=== PATIENT | female | born 1950 | race Caucasian/White ===

== ENCOUNTER → 2017-10-27 14:39 | Outpatient (CLI) | payer MEDICARE, SELFPAY ==
--- NOTE | 2017-10-27 14:52 | MM_ITS ---
MM Dig screening mamm BI w/CAD CAD Screening COMPARISON: Digital mammograms 02/18/2016 and 07/04/2014 INDICATION: There is a history of breast cancer patient's daughter. There has been a previous biopsy right breast. TECHNIQUE: Standard CC and MLO images were obtained. R2 CAD reviewed. FINDINGS: The breasts are composed primarily of fat with minimal scattered fibroglandular densities in each breast. There are multiple benign-appearing calcifications in each breast. There is a stable benign-appearing nodular density just deep to the nipple right breast. Is a biopsy clip seen deep within the right breast. There is another stable nodular density deep within the right breast near the axillary tail. There is no suspicious lesion and no suspicious microcalcifications. IMPRESSION: Fatty type breast parenchyma with no suspicious lesion seen BI-RADS Category: 2 Benign Finding(s) RECOMMENDED FOLLOW-UP: 1YR - 1 YEAR FOLLOW-UP (A letter has been sent to the patient regarding results of the study.)
--- NOTE | 2017-10-27 14:52 | XR_ITS ---
XR DEXA axial skeleton HISTORY: ITS.REASON: POST MENOPAUSAL ORDERING PHYSICIAN: Moira Loyd PATIENT AGE: 67 years COMPARISON: None FINDINGS: The BMD measured at the left femoral neck is 0.759 g/cm squared with a T score of -2.0. This is considered Osteopenic according to the World Health Organization criteria. Fracture risk is Moderate. Treatment is advised. The L1-L4 density has a T score of -1.7 IMPRESSION: Osteopenia with moderate fracture risk. Recommend treatment and follow-up exam in October 2019
== END ==
PROVIDERS: Family Provider Nurse Practitioner Family; PCP Family Medicine; Visit Provider Nurse Practitioner Family
DX: Z78.0 Asymptomatic menopausal state (principal); Z12.31 Encounter for screening mammogram for malignant neoplasm of breast
CPT/HCPCS: 77067; 77080

== ENCOUNTER → 2017-12-31 13:25 | Outpatient (CLI) | payer MEDICARE, SELFPAY ==
--- NOTE | 2017-12-31 13:31 | XR_ITS ---
XR hand LT min 3V HISTORY: Posttraumatic pain ITS.REASON: LEFT HAND INJURY ORDERING PHYSICIAN: JAZLYN Levy PATIENT AGE: 67 years COMPARISON: None FINDINGS: Soft tissue swelling is present at the metacarpal phalangeal junction. Nondisplaced fracture involves the proximal aspect of the proximal phalanx of the fourth finger only well seen on the AP view.. There is an old distal radial and old distal ulnar fracture. IMPRESSION: Nondisplaced fracture proximal aspect proximal phalanx fourth digit
== END ==
PROVIDERS: PCP Nurse Practitioner Family; Visit Provider Physician Assistant
DX: S69.92XA Unspecified injury of left wrist, hand and finger(s), initial encounter (principal)
CPT/HCPCS: 73130

== ENCOUNTER → 2018-01-19 10:13 | Outpatient (CLI) | payer MEDICARE, SELFPAY ==
--- NOTE | 2018-01-19 10:18 | XR_ITS ---
XR finger LT min 2V CLINICAL INDICATION: Follow-up fracture ITS.REASON: FU FX RING FINGER ORDERING PHYSICIAN: JAZLYN Levy PATIENT AGE: 67 years Comparison: 8 01/30/2013 FINDINGS: Persistent oblique nondisplaced fracture involves the proximal and anterior aspect of the proximal phalanx of the fourth digit not significant changed. No callus formation. IMPRESSION: No change nondisplaced fracture proximal phalanx fourth digit
== END ==
PROVIDERS: PCP Family Medicine; Visit Provider Physician Assistant
DX: S62.645D Nondisplaced fracture of proximal phalanx of left ring finger, subsequent encounter for fracture with routine healing (principal)
CPT/HCPCS: 73140

== ENCOUNTER → 2018-02-23 14:09 | Outpatient (CLI) | payer MEDICARE, SELFPAY ==
--- NOTE | 2018-02-23 14:16 | XR_ITS ---
XR finger LT min 2V CLINICAL INDICATION: Follow-up fracture ITS.REASON: FU FX ORDERING PHYSICIAN: Moira Loyd PATIENT AGE: 67 years Comparison: 01/19/2018 FINDINGS: Nondisplaced fracture noted at the base of the proximal phalanx of the finger with both a longitudinal and transverse component fracture line is slightly less apparent compared to the previous exam. IMPRESSION: Healing nondisplaced fracture base of proximal phalanx of fourth digit
== END ==
PROVIDERS: PCP Nurse Practitioner Family; Visit Provider Nurse Practitioner Family
DX: S62.645D Nondisplaced fracture of proximal phalanx of left ring finger, subsequent encounter for fracture with routine healing (principal)
CPT/HCPCS: 73140

== ENCOUNTER → 2018-07-26 13:29 | Outpatient (CLI) | payer MEDICARE, SELFPAY ==
--- NOTE | 2018-07-26 13:41 | XR_ITS ---
EXAM: XR lumbar spine min 4V HISTORY: ITS.REASON: LOW BACK PAIN ORDERING PHYSICIAN: Moira Loyd PATIENT AGE: 68 years COMPARISON: None FINDINGS: There is normal alignment. No fracture or dislocation is evident. Ankylosis is present in the lower thoracic spine. Small endplate osteophytes are present from L3 to S1. No lytic or blastic change. Gastric lap band is noted IMPRESSION: Mild degenerative change, no acute finding
== END ==
PROVIDERS: PCP Nurse Practitioner Family; Visit Provider Nurse Practitioner Family
DX: M54.5 Low back pain (principal)
CPT/HCPCS: 72110

== ENCOUNTER → 2018-11-26 15:50 | Outpatient (CLI) | payer MEDICARE, SELFPAY ==
--- NOTE | 2018-11-26 15:53 | MM_ITS ---
MM Dig screening mamm BI w/CAD ORDERING PHYSICIAN : Moira Loyd APRN PATIENT AGE: 68 years GENDER: Female COMPARISON: January 2016, October 2017, June 2014, INDICATION: Routine screening mammogram. No hormones no new complaints Previous stereotactic biopsy right breast was benign Family history:.With breast cancer age 35 TECHNIQUE: Standard CC and MLO images were obtained. R2 CAD reviewed. FINDINGS: Low-density breast with generalized fatty replacement. No suspicious nor dominant mass . No significant new densities of significant concern. A few low-density Scattered small stable density areas compatible intramammary nodes bilaterally. No new areas of significant concern. RIGHT BREAST: No new findings significant concern. Small intramammary node, lateral right breast 7.5 mm again noted similar to previous study. Previous percutaneous biopsy medial right breast. Metallic marker from such noted. Some stable linear likely developing secretory calcifications at medial right breast again noted only slightly more evident.. Warrant ongoing follow-up LEFT BREAST: Stable 1 cm very dense calcified area in the retroareolar region again noted. Other scattered dense benign calcifications again noted. . ...... IMPRESSION: ...... 1.... No significant new findings. 2.... Bilateral follow-up in one year recommended and should be encouraged BI-RADS Category: 2 Benign Finding(s) RECOMMENDED FOLLOW-UP: 1YR 1 YEAR FOLLOW-UP (A letter has been sent to the patient regarding results of the study.)
== END ==
PROVIDERS: PCP Nurse Practitioner Family; Visit Provider Nurse Practitioner Family
DX: Z12.31 Encounter for screening mammogram for malignant neoplasm of breast (principal)
CPT/HCPCS: 77067

== ENCOUNTER → 2019-05-30 10:52 | Outpatient (CLI) | payer MEDICARE, SELFPAY ==
--- NOTE | 2019-05-30 11:05 | ECG_ITS ---
APPROVED REPORT Exam: Resting ECG HR:60 bpm ECG Measurements Heart Rate 60 AXES KS 148 P 42 QRSd 98 QRS -6 QT 432 T 99 QTc 432 <Conclusion> Sinus rhythm with occasional premature ventricular complexes NDST-T Changes Abnormal ECG Electronically signed by : Prashanth Jang, 05/30/2019 12:54:53
--- NOTE | 2019-05-30 11:07 | XR_ITS ---
PROCEDURE: XR CHEST 2V CLINICAL HISTORY: CHEST PAIN COMPARISON: CXR CHEST(2 VIEWS-NOT PORTABLE) from 08/22/2013 CXR CHEST(2 VIEWS-NOT PORTABLE) from 06/18/2016 CXR CHEST(2 VIEWS-NOT PORTABLE) from 08/12/2016 CXR CHEST(2 VIEWS-NOT PORTABLE) from 04/22/2017 FINDINGS: Borderline cardiomegaly without failure. Coronary artery stents and or calcification noted. The lungs are clear without infiltrates, suspicious nodules, or pleural effusions. Thoracic scoliosis convex right with lumbar scoliosis convex left with degenerative changes of the thoracic spine. IMPRESSION: Cardiomegaly with coronary artery disease. No change with no acute finding Dictated by: Bi Villalobos MD 05/30/2019 12:04 Electronically signed by Bi Villalobos MD in [place] 05/30/2019 12:04
== END ==
PROVIDERS: PCP Family Medicine; Visit Provider Nurse Practitioner Family
DX: R07.9 Chest pain, unspecified (principal)
CPT/HCPCS: 71046; 93005

== ENCOUNTER → 2019-06-02 07:47 | Outpatient (CLI) | payer MEDICARE, SELFPAY ==
--- NOTE | 2019-06-02 08:00 | CT_ITS ---
PROCEDURE: CT ABDOMEN WO CON CLINICAL HISTORY: EPIGASTRIC PAIN, CHEST PAIN COMPARISON: XR CHEST 2V from 05/30/2019 TECHNIQUE: Axial images obtained with sagittal and coronal reformats. All CT scans at the facility use one or more dose reduction, viz: automated exposure control, ma/kV adjustment per patient size (including targeted exams where dose is matched to indication, i.e. head), or iterative reconstruction technique. FINDINGS: Lower thorax: Coronary artery calcifications and/or stents with aortic valve calcifications also noted and mitral valve annular calcification. There is a gastric lap band present with mild thickening of the distal esophagus which is nonspecific and could be due to reflux with questionable small hiatal hernia. Mild fibrotic changes are present in the left lung base The liver, spleen, and pancreas have an unremarkable unenhanced CT appearance. There is a small splenic artery aneurysm with peripheral circular calcification measuring 11 mm. There are punctate right renal calculi and a 4 mm stone in the lower pole of the left kidney. No hydronephrosis. No ureteral calculi. There is a complex left rib adrenal mass. This measures approximately 3.3 x 3 cm containing soft tissue component, calcification, and fat. The nodule is well-circumscribed and may represent an adrenal myelolipoma. The right adrenal gland is slightly prominent measuring -12 Hounsfield units consistent with an adenoma. No evidence of appendicitis or intestinal obstruction or free air. No acute bony findings. IMPRESSION: 1. Left adrenal mass at 3.3 x 3 cm containing soft tissue fat and calcification consistent with an adrenal myelolipoma. Suggest 3 month follow-up to confirm short term stability. Differential diagnosis would include retroperitoneal liposarcoma or fat containing adrenal cortical carcinoma or teratoma 2. Gastric lap band present in satisfactory position with mild thickening of the distal esophagus versus small hiatal hernia. Reflux is a consideration Dictated by: Bi Villalobos MD 06/03/2019 09:37 Electronically signed by Bi Villalobos MD in [place] 06/03/2019 09:37
--- NOTE | 2019-06-02 08:16 | CA_ITS ---
APPROVED REPORT EXAM: Comprehensive 2D, Doppler, and color-flow Echocardiogram Automatic Buffing Wheel Former: Jaylene Jara CRT Ht: 5 ft 2 in Wt: 200lbs BSA: 1.91 BP: 140/80 mmHg Indications: CP, SOB, DM, HTN, HLD, OR,Stents, obesity 2D Dimensions LVOT 1.86 cm (M/F) 1.5-2.5 M-Mode Dimensions RVDd 2.96 cm (0.9-2.6) LVDd 5.68 cm (3.5-5.7) LVDs 4.29 cm (3.5-5.7) IVSd 1.53 cm (0.6-1.1) PWd 1.10 cm (0.6-1.1) EF (Teich) 48.00% FS 24.50% EDV (Teich) 158.80 mL ESV (Teich) 82.60 mL LV Diastology E/A Ratio 0.87 Aortic Valve LVOT Max 173.00 (70-110 cm/s) LVOT VTI 41.29 cm Mitral Valve MV A Velocity 85.00 (40-130 cm/s) Left Ventricle Left atrium is mildly enlarged, left ventricle is normal size, mild concentric left ventricular hypertrophy, visually estimated ejection fraction of 50% with no regional wall motion abnormality, grade 1 diastolic dysfunction seen without tissue Doppler evidence of raise left atrial pressure. Right Ventricle Right atrium and right ventricle mildly enlarged with normal contractility. Aortic Valve Aortic valve is thickened and calcified leaflet chordae display good mobility, there is no aortic stenosis aortic insufficiency. Mitral Valve Mitral valve has mitral calcification, leaflets are minimally thickened, there is no mitral stenosis. There is mild mitral regurgitation. Tricuspid Valve Tricuspid valve is grossly normal, there is mild tricuspid regurgitation, tricuspid regurgitation jet velocity is inadequate for calculation of the right ventricular systolic pressure. Pulmonic Valve Pulmonic valve is poorly visualized. Great Vessels Aortic root is normal size. Pericardium No significant pericardial effusion noted. Conclusion 1. Biatrial enlargement, normal left ventricular size, mild concentric left ventricular hypertrophy, visually estimated ejection fraction 50% with no regional wall motion abnormality, grade 1 diastolic dysfunction seen without tissue Doppler evidence of raise left atrial pressure. 2. Mildly enlarged right ventricle with normal contractility. 3. Mild mitral and tricuspid regurgitation. 4. No significant pericardial effusion noted. Electronically signed by : Rodrigo Alvarado, 06/03/2019 13:41:10
== END ==
PROVIDERS: PCP Family Medicine; Visit Provider Nurse Practitioner Family
DX: R07.9 Chest pain, unspecified (principal); R10.13 Epigastric pain
CPT/HCPCS: 74150; 93306

== ENCOUNTER → 2020-01-03 16:07 | Outpatient (CLI) | payer MEDICARE, SELFPAY ==
--- NOTE | 2020-01-03 16:13 | XR_ITS ---
PROCEDURE: XR CHEST AP CLINICAL HISTORY: COVID TESTING COMPARISON: CR CXR CHEST(2 VIEWS-NOT PORTABLE) from 08/12/2016 CR CXR CHEST(2 VIEWS-NOT PORTABLE) from 04/22/2017 DX XR CHEST 2V from 05/30/2019 FINDINGS: Borderline cardiomegaly without failure. Artifact is present from patient's bra. The lungs are clear without infiltrates, suspicious nodules, or pleural effusions. No acute bony abnormalities. IMPRESSION: No acute findings. Dictated b Bi Villalobos MD 01/04/2020 06:18 Bi Villalobos MD in [place] 01/04/2020 06:18
[2020-01-03 16:52] LABS: Basophils % 0.3 % (0.1-2.0); Eosinophils # 0.4 K/mm3 (0.0-0.4); Eosinophils % 5.9 % (0.1-12.0); Hematocrit 29.7 % (37.0-47.0); Hemoglobin 9.5 g/dL (12.2-16.2); Lymphocytes # 1.2 K/mm3 (0.7-4.5); Lymphocytes % 19.1 % (10-50); Mean Corpuscular Hemoglobin 30.8 pg (27.0-31.2); Mean Corpuscular Volume 96.5 fl (81-99); Mean Platelet Volume 10.2 fl (7.4-10.4); Monocytes # 0.5 K/mm3 (0.1-1.0); Monocytes % 8.6 % (1.7-9.3); Neutrophils % 66.2 % (37.0-80.0); Platelet Count 168 K/mm3 (142-424); Red Blood Count 3.08 M/mm3 (4.20-5.40); Red Cell Distribution Width 14.7 % (11.5-17.5); White Blood Count 6.1 K/mm3 (4.8-10.8)
== END ==
PROVIDERS: PCP Nurse Practitioner Family; Visit Provider Nurse Practitioner Family
DX: Z03.818 Encounter for observation for suspected exposure to other biological agents ruled out (principal)
CPT/HCPCS: 71045; 85025; U0003

== ENCOUNTER → 2020-02-28 12:43 | Outpatient (CLI) | payer MEDICARE, SELFPAY ==
--- NOTE | 2020-02-28 12:46 | MM_ITS ---
PROCEDURE: MM DIG SCREENING MAMM BI W/CAD Digital Breast Tomosynthesis Included CLINICAL INDICATION: SCREENING This cancer patient's daughter diagnosed before menopause. There has been a previous biopsy right breast for benign disease. COMPARISON: MG DMSB DIG MAMM-SCREEN SUSAN from 02/18/2016 MG [facility]BI MM Dig screening mamm BI w/CAD from 10/27/2017 MG DIG MAMM-SCREEN SUSAN from 11/26/2018 TECHNIQUE: Standard CC and MLO images and 3D Tomosynthesis was obtained. R2 CAD reviewed. FINDINGS: The breasts are composed primarily of fat with minimal scattered fibroglandular densities seen throughout each breast. There are scattered benign-appearing micro and macrocalcifications in each breast. There is faint arterial calcification in each breast. There are stable benign-appearing nodular lesions right breast. There is no suspicious lesion and no suspicious microcalcifications. IMPRESSION: Fibrofatty parenchyma with no suspicious lesions seen BI-RAD Category: 2 Benign Finding(s) FOLLOW-UP: 1YR 1 Year Follow-up (A letter has been sent to the patient regarding results of the study.) Dictated by: Dr. David Marx MD 02/29/2020 18:51 Dr. David Marx MD in [place] 02/29/2020 18:51
--- NOTE | 2020-02-28 12:47 | XR_ITS ---
PROCEDURE: XR DEXA AXIAL SKELETON CLINICAL HISTORY: POST MENOPAUSAL COMPARISON: CR DEXAAX XR DEXA axial skeleton from 10/27/2017 FINDINGS: The right hip BMD is 0.624 with a T-score of -2.0. The left hip BMD is 0.621 with a T-score of -2.1. The lumbar spine BMD is 0.881 with a T-score of -1.5. IMPRESSION: This patient is considered osteopenic according to the World Health Organization criteria. Bone density is between 10 and 25 percent below young normal. Fracture risk is moderate. Treatment is advised. Based on these results a follow-up exam is recommended in 2 year. Dictated by: Bi Villalobos MD 03/01/2020 11:40 Bi Villalobos MD in [place] 03/01/2020 11:40
== END ==
PROVIDERS: PCP Nurse Practitioner Family; Visit Provider Nurse Practitioner Family
DX: Z12.31 Encounter for screening mammogram for malignant neoplasm of breast (principal); Z13.820 Encounter for screening for osteoporosis; Z78.0 Asymptomatic menopausal state
CPT/HCPCS: 77063; 77067; 77080

== ENCOUNTER → 2020-09-26 11:25 | Outpatient (CLI) | payer MEDICARE, SELFPAY ==
--- NOTE | 2020-09-26 | XR_ITS ---
PROCEDURE: XR HIP RT 2-3V W/PELVIS Right femur x-ray CLINICAL INDICATION: HIP PAIN COMPARISON: CR XR FEMUR RT 2V from 09/26/2020 FINDINGS: Right hip: AP view of the pelvis and views of the right hip show mild osteoarthritic change of the right hip. No fracture or dislocation. No lytic or blastic change. There are mild degenerative changes of the inferior aspect of the right SI joint. Minimal osteoarthritis of the left hip also noted. Right femur: There are mild osteoarthritic changes also at the right knee. There is diffuse vascular calcification. A sclerotic focus is present in the medial femoral condyle and may be due to a bone island. IMPRESSION: Mild osteoarthritic change of the hips and right knee and right SI joint. Dictated by: Bi Villalobos MD 09/26/2020 12:37 Bi Villalobos MD in [place] 09/26/2020 12:37
== END ==
PROVIDERS: PCP Nurse Practitioner Family; Visit Provider Nurse Practitioner Family
DX: M25.551 Pain in right hip (principal); M79.651 Pain in right thigh
CPT/HCPCS: 73502; 73552

== ENCOUNTER → 2020-10-03 14:44 | Outpatient (CLI) | payer MEDICARE, SELFPAY | PROVIDERS: Visit Provider Internal Medicine Gastroenterology | DX: Z01.812 Encounter for preprocedural laboratory examination (principal); Z11.52 Encounter for screening for COVID-19; R10.13 Epigastric pain | CPT/HCPCS: U0003 ==

== ENCOUNTER 2020-10-05 09:02 | Day surgery (SDC) | payer MEDICARE, SELFPAY ==
[2020-10-03 10:04] VITALS: BMI 36.6
[2020-10-05] VITALS (7 sets, daily range): BP systolic 123–157; BP diastolic 58–84; PULSE 60–67; RESP 16–18; TEMP 36.1–36.4; O2SAT 97–100
[2020-10-05 10:01] LABS: POC Glucose,Bedside 150 (70-110)
--- NOTE | 2020-10-05 10:50 | HMH.ANESCL ---
[facility] Anesthesia Checklist - Structural Data Admitted From: Home Planned Operative Procedure/s: egd Consent for Planned Operative Procedure(s) Verified: Yes - Airway Assessment C-Spine Mobility Assessed: Yes TMJ Mobility Assessed: Yes Dentition: Edentulous - Neurological Assessment Level of Consciousness: Awake, Alert, Appropriate - Anesthesia Plan Anesthesia Risk discussed: Yes Anesthesia Plan: Verified ASA Class: III Anesthesia Type: MAC [facility] History I have reviewed the patient's past medical history: Yes Medical History: Reports:: Diabetes Mellitus Type 2 Denies:: Cancer, Diabetes Mellitus Type 1, Internal Pacemaker, MRSA *Have you ever received a pneumonia vaccine?: Yes *Have you received a flu vaccine this season?: Yes Anesthesia experience/problems:: none Other Surgeries: No: Pacemaker Amputation: No Fractures: No - *Social History Last grade of school completed: High school graduate Smoking Status: Former smoker Alcohol Intake: never Substance Use Type: denies use *Occupational Status:: retired Housing: house Household Members: none *Travel in the last 8 weeks: None Family Hx:: No significant family history
--- NOTE | 2020-10-05 11:05 | P.PCN_ITS ---
[facility] Procedure Note Procedure Note:: Upper Endoscopy Procedure Report: Esophagogastroduodenoscopy with cold biopsies and TTS balloon dilation Endoscopost: Mikal Lozada II, MD Referring Physician: Moira GRECO Date of Procedure: October 05, 2020 Equipment: Olympus GIF 190 standard upper endoscope Sedation: MAC sedation Indications: Mrs. Grande is a 70-year-old female with nausea and some vomiting with dry heaves. She also has had moderate dysphagia to her medicines. She has had some heartburn, reflux, bloating and belching. She reports some epigastric discomfort and early satiety. She has had some constipation for which she takes a stool softener. This was exacerbated by her iron tablets. She has had weight loss. Her mother had colon cancer at the age of 84. The patient also has moderate iron deficiency anemia. Her recent hemoglobin was 9.3 with hematocrit 28.6. She is on Brilinta. She did have prior gastric LapBand (April 2006). Records show that her colonoscopy was January 2004. Procedure: Prior to the procedure, a history and physical exam was performed, and patient's medications and allergies were reviewed. The risks, benefits and alternatives of the sedation and procedure were discussed with the patient. All questions were answered and informed consent was obtained. The patient was brought to the procedure room. Patient identification and proposed procedure were verified by the physician and the nurse. The patient was placed in a left lateral decubitus position and the scope was passed under direct vision. Throughout the procedure, the patient's blood pressure, pulse, and oxygen saturations were monitored continuously. The upper GI endoscopy was accomplished without difficulty. The patient tolerated the procedure well. Findings: The scope was passed directly into the upper esophagus and advanced to the third portion of the duodenum. The post bulbar duodenum and duodenal bulb were normal with normal mucosa and conniventes. The scope was withdrawn through a normal duodenal bulb and pylorus into the stomach. There was bile reflux with moderate linear reactive gastropathy of the antrum and body of the stomach. The remainder of the fundus of the stomach was grossly normal. Upon retroflexion there was evidence of prior fundic Lap Band surgery with possible small hiatal hernia. 2 biopsies were taken in the antrum and along the lesser curvature for histology to rule out gastritis and/or H pylori. The scope was then withdrawn into the esophagus. There was a serrated Z-line. There were strong tertiary contractions and moderate increase of esophageal luminal diameter. This is consistent with moderate esophageal dysmotility. The entire esophagus was dilated to 18 and 20 mm with a TTS hydrostatic balloon. There was some resistance at the site of her prior LAP-BAND surgery. There was also resistance at the cricopharyngeus. The remainder of the esophageal mucosa was normal. Impression: 1. Moderate esophageal dysmotility with nonerosive GERD and cricopharyngeal spasm 2. Prior fundic Lap Band surgery 3. Moderate linear reactive gastropathy Plan: I do feel the patient has functional dyspepsia and some functional GERD. This is related to her her obstipation with gas pressure gradients. We will discuss additional dietary measures and treatment options. Based upon her moderate iron deficiency, recent change in bowel habits/obstipation, family history and weight loss, I would recommend colonoscopy soon.
== END 2020-10-05 12:00 | disposition home or self-care (01) ==
LOC: OUTP 09:04
PROVIDERS: PCP Nurse Practitioner Family; Visit Provider Internal Medicine Gastroenterology
PROC: 0DJ08ZZ Inspection of Upper Intestinal Tract, Via Natural or Artificial Opening Endoscopic (ICD-10-PCS; CPT 43235; principal; 2020-10-05 10:30)
DX: K22.4 Dyskinesia of esophagus (principal); J39.2 Other diseases of pharynx; K31.9 Disease of stomach and duodenum, unspecified; K21.9 Gastro-esophageal reflux disease without esophagitis; Z98.84 Bariatric surgery status; E11.9 Type 2 diabetes mellitus without complications; Z87.891 Personal history of nicotine dependence; I25.2 Old myocardial infarction; I25.10 Atherosclerotic heart disease of native coronary artery without angina pectoris; I10 Essential (primary) hypertension; E78.5 Hyperlipidemia, unspecified; F32.9 Major depressive disorder, single episode, unspecified
CPT/HCPCS: 43239; 43249; 82962; 88305; 88313; 88342; C1726

== ENCOUNTER → 2020-10-15 11:07 | Outpatient (CLI) | payer MEDICARE, SELFPAY ==
--- NOTE | 2020-10-15 11:11 | XR_ITS ---
PROCEDURE: XR CHEST 2V CLINICAL HISTORY: URI COMPARISON: CR CXR CHEST(2 VIEWS-NOT PORTABLE) from 04/22/2017 DX XR CHEST 2V from 05/30/2019 CR XR CHEST AP from 01/03/2020 FINDINGS: Borderline cardiomegaly without failure. Coronary artery stents are present. The lungs are clear without infiltrates, suspicious nodules, or pleural effusions. Degenerative changes thoracic spine. There is DISH of the thoracic spine and mid aspect. IMPRESSION: Borderline cardiomegaly otherwise negative with no acute finding Dictated by: Bi Villalobos MD 10/15/2020 11:41 Bi Villalobos MD in [place] 10/15/2020 11:41
== END ==
PROVIDERS: PCP Nurse Practitioner Family; Visit Provider Nurse Practitioner Family
DX: J06.9 Acute upper respiratory infection, unspecified (principal)
CPT/HCPCS: 71046

== ENCOUNTER → 2020-12-14 14:24 | Outpatient (CLI) | payer MEDICARE, SELFPAY | PROVIDERS: Visit Provider Internal Medicine Gastroenterology | DX: Z01.812 Encounter for preprocedural laboratory examination (principal); Z20.822 Contact with and (suspected) exposure to COVID-19; Z12.11 Encounter for screening for malignant neoplasm of colon | CPT/HCPCS: U0003 ==

== ENCOUNTER 2020-12-17 11:03 | Day surgery (SDC) | payer MEDICARE, SELFPAY ==
[2020-12-12 10:25] VITALS: BMI 34.7
[2020-12-17] VITALS (7 sets, daily range): BP systolic 125–194; BP diastolic 57–74; PULSE 55–64; RESP 18; TEMP 36.1–36.3; O2SAT 95–99
[2020-12-17 11:38] LABS: POC Glucose,Bedside 141 (70-110)
--- NOTE | 2020-12-17 12:38 | P.PN_ITS ---
[facility] Anesthesia Checklist - Patient Identification Patient Identification: Arm Band - Structural Data Admitted From: Home Planned Operative Procedure/s: colonoscopy Consent for Planned Operative Procedure(s) Verified: Yes Verified Documents: Surgical Consent, History and Physical - NPO Status Verified Time NPO: 00:00 - Additional verifications Anesthesia Reactions: No - Airway Assessment C-Spine Mobility Assessed: Yes (mp2) TMJ Mobility Assessed: Yes Dentition: Dentures-good fit - Neurological Assessment Level of Consciousness: Awake, Alert - Anesthesia Plan Anesthesia Risk discussed: Yes Anesthesia Plan: Verified ASA Class: III Anesthesia Type: MAC [facility] History I have reviewed the patient's past medical history: Yes Medical History: Reports:: Anxiety, Coronary Artery Disease, Diabetes Mellitus Type 2, Gastroesophageal Reflux Disease(GERD), Hyperlipidemia, Hypertension, Renal Insufficiency Denies:: Cancer, Diabetes Mellitus Type 1, Internal Pacemaker, MRSA, Seizures *Have you ever received a pneumonia vaccine?: Yes *Have you received a flu vaccine this season?: Yes Anesthesia experience/problems:: nac Other Surgeries: Yes: Other. No: Pacemaker Amputation: No Fractures: No - *Social History Last grade of school completed: High school graduate Smoking Status: Former smoker #Yrs smoked (if former smoker): 8 Smoking End Date: 1997 Alcohol Intake: never Substance Use Type: denies use *Occupational Status:: retired Housing: apartment Household Members: other *Travel in the last 8 weeks: None Family Hx:: Cancer, Diabetes
--- NOTE | 2020-12-17 12:49 | [facility].PROC ---
[facility] Procedure Note Procedure Note:: Colonoscopy Procedure Report: Colonoscopy with cold snare polypectomy Endoscopist: Mikal Lozada II, MD Referring physician: Facundo Downs MD Date of Procedure: December 17, 2020 Equipment: Olympus 190 variable stiffness pediatric colonoscope Sedation: MAC sedation Indication: Mrs. Grande is a 70-year-old female who is here for diagnostic colonoscopy. She does have iron deficiency anemia and change in bowel habits. She has had constipation for which she is taking a stool softener with stimulant laxative. Her mother had colon cancer at the age of 84. Her recent hemoglobin and hematocrit were 9.3 and 28.6. Her last colonoscopy was January 2004. She reports no rectal bleeding or weight loss. She has had some reflux and dyspepsia. She recently had an EGD on October 05, 2020 and had some reactive gastropathy, prior LAP-BAND and nonerosive GERD. Procedure: Prior to the procedure, a history and physical exam was performed, and patient's medications and allergies were reviewed. The risks, benefits and alternatives of the sedation and procedure were discussed with the patient. All questions were answered and informed consent was obtained. The patient was brought to the procedure room. Patient identification and proposed procedure were verified by the physician and the nurse. The patient was placed in a left lateral decubitus position and the scope was passed under direct vision. Throughout the procedure, the patient's blood pressure, pulse, and oxygen saturations were monitored continuously. The colonoscopy was accomplished without difficulty. The patient tolerated the procedure well. Findings: On digital rectal examination there was normal rectal tone. There were no external hemorrhoids. The colonoscope was introduced through the anal canal to the rectum and advanced to the cecum. The ileocecal valve and appendiceal orifice were identified. The scope was advanced a short distance into the ileum which appeared grossly normal. The scope was then withdrawn into the colon. There was some melanosis coli of the distal and mid colon (ascending and transverse colon). There were 2 colon polyps (descending x1 (5 mm) and rectosigmoid x1 (7 mm)) which were both removed via cold snare polypectomy. There were scattered diverticuli throughout the descending and sigmoid colon (LEFT colon). The rectum itself was normal. Upon retroflexion within the rectum there were grade 1-2 internal hemorrhoids. The preparation was excellent throughout with [place] Preparation Score of 9. The cecal time was 12 minutes. Impression: 1. Diminutive colonic polyps x2 2. Mild melanosis coli 3. Left-sided diverticulosis 4. Grade 1-2 internal hemorrhoids Plan: I will follow up the polyp histology. Based upon the patient's family history, I would recommend repeat surveillance colonoscopy again in 5 years. I would encourage a fiber bowel regimen (combined MiraLAX plus Metamucil) on a long-term daily maintenance basis.
== END 2020-12-17 13:45 | disposition home or self-care (01) ==
LOC: OUTP 11:05
PROVIDERS: PCP Nurse Practitioner Family; Visit Provider Internal Medicine Gastroenterology
PROC: 0DJD8ZZ Inspection of Lower Intestinal Tract, Via Natural or Artificial Opening Endoscopic (ICD-10-PCS; CPT 45378; principal; 2020-12-17 12:00)
DX: K63.89 Other specified diseases of intestine (principal); K63.5 Polyp of colon; K57.30 Diverticulosis of large intestine without perforation or abscess without bleeding; K64.0 First degree hemorrhoids; Z80.0 Family history of malignant neoplasm of digestive organs; F41.9 Anxiety disorder, unspecified; I25.10 Atherosclerotic heart disease of native coronary artery without angina pectoris; E11.9 Type 2 diabetes mellitus without complications; K21.9 Gastro-esophageal reflux disease without esophagitis; E78.5 Hyperlipidemia, unspecified; I10 Essential (primary) hypertension; N28.9 Disorder of kidney and ureter, unspecified
CPT/HCPCS: 45385; 82962; 88305

== ENCOUNTER → 2021-03-06 16:30 | Outpatient (CLI) | payer MEDICARE, SELFPAY ==
--- NOTE | 2021-03-06 16:32 | MM_ITS ---
PROCEDURE INFORMATION: Exam: MG Bilateral Screening 3D Mammography Exam date and time: 03/06/2021 4:32 PM Age: 70 years old Clinical indication: Encounter for screening mammogram for malignant neoplasm of breast. Family history of premenopausal breast carcinoma. TECHNIQUE: Imaging protocol: Bilateral screening tomosynthesis and 2D mammography including computer-aided detection (CAD) when performed. COMPARISON: No relevant prior studies available. FINDINGS: MAMMOGRAPHY: Breast composition: There are scattered areas of fibroglandular density. Mass: No suspicious masses. Architectural distortion: No suspicious distortion. Calcifications: No suspicious calcifications. Asymmetric density: None. Skin thickening: None. Axillary adenopathy: None. IMPRESSION: No mammographic evidence of malignancy. Annual screening is recommended unless otherwise clinically indicated. ASSESSMENT: BI-RADS Category 1: Negative
== END ==
PROVIDERS: PCP Nurse Practitioner Family; Visit Provider Nurse Practitioner Family
DX: Z12.31 Encounter for screening mammogram for malignant neoplasm of breast (principal)
CPT/HCPCS: 77063; 77067

== ENCOUNTER → 2022-07-07 10:53 | Outpatient (CLI) | payer MEDICARE, SELFPAY ==
--- NOTE | 2022-07-07 10:58 | MM_ITS ---
PROCEDURE INFORMATION: Exam: MG Bilateral Screening 3D Mammography Exam date and time: 07/07/2022 10:50 AM Age: 72 years old Clinical indication: Screening examination TECHNIQUE: Imaging protocol: Bilateral Screening tomosynthesis and 2D mammography including computer-aided detection (CAD) when performed. COMPARISON: 1. MG MM DIG SCREENING MAMM BI W/CAD 03/06/2021 4:30 PM 2. MG MM DIG SCREENING MAMM BI W/CAD 02/28/2020 1:10 PM FINDINGS: MAMMOGRAPHY: Breast composition: The breasts are almost entirely fatty. Mass: None. Architectural distortion: None. Calcifications: No suspicious calcifications. Asymmetric density: None. Skin thickening: None. Axillary adenopathy: None. IMPRESSION: No mammographic evidence of malignancy. Annual screening is recommended unless otherwise clinically indicated. ASSESSMENT: BI-RADS Category 1: Negative
== END ==
PROVIDERS: PCP Emergency Medicine; Visit Provider Emergency Medicine
DX: Z12.31 Encounter for screening mammogram for malignant neoplasm of breast (principal)
CPT/HCPCS: 77063; 77067